=== PATIENT | female | born 1980 | race Caucasian/White ===

== ENCOUNTER 2019-04-28 18:30 | Observation (INO) | payer MEDICAID, OTHER ==
[~2019-04-28] VITALS: Ht 157.5 cm; Wt 60.8 kg
[2019-04-28] MEDS ORDERED: DEXT 5%/LR + PITOCIN 20UNITS/L 1,000 ML IV SCH ×2 (19:01→20:28)
[2019-04-28] MEDS ORDERED: BUTORPHANOL TARTRATE 2 MG/ML VIAL IV PRN (19:15)
[2019-04-28] MEDS ORDERED: NALOXONE HCL 0.4 MG/ML 1ML VIAL IM PRN (19:15)
[2019-04-28] MEDS ORDERED: CARBOPROST TROMETHAMINE 250 MCG/ML AMPUL IM PRN (19:15)
[2019-04-28] MEDS ORDERED: MISOPROSTOL 100MCG TABLET VG SCH (19:15)
[2019-04-28] MEDS ORDERED: METHYLERGONOVINE MALEATE 0.2 MG/ML IM PRN (19:15)
[2019-04-28] MEDS ORDERED: LIDOCAINE HCL 1% 20ML VIAL (Pyxis) INJ INFIL SCH (19:15)
[2019-04-28] MEDS ORDERED: MAGNESIUM 4 G PREMIX 100 ML IV NR (19:15)
[2019-04-28] MEDS ORDERED: BETAMETHASONE ACET/BETAMET 30 MG/5 ML VIAL IM ONE (19:15)
[2019-04-28 19:29] LABS: BASOPHILS % 0.3 % (0.0-2.0); EOSINOPHILS % 0.4 % (0.0-5.0); HEMOGLOBIN. 9.5 g/dL (12.0-16.0); LYMPHOCYTES % 17.8 % (20.0-50.0); MEAN CORPUSCULAR HEMOGLOBIN 31.9 pg (28.0-32.0); MEAN PLATELET VOLUME 9.1 fl (7.4-10.4); NEUTROPHILS % 75.5 % (40.0-76.0); PLATELET 202 x1000/uL (130-400); RED BLOOD CELL COUNT 2.97 mill/uL (4.2-5.4); RED CELL DISTRIBUTION WIDTH 13.7 % (11.6-14.6)
[2019-04-28 19:36] LABS: CHLORIDE 114 mEq/L (98-107)
[2019-04-28 19:37] LABS: PARTIAL THROMBOPLASTIN TIME 24.1 sec (23.4-31.0); PROTHROMBIN TIME 10.1 sec (9.6-11.0)
[2019-04-28 20:06] LABS: HEPATITIS B SURFACE ANTIGEN NEGATIVE
[2019-04-28] MEDS ORDERED: IBUPROFEN 400MG TABLET PO PRN (20:30)
[2019-04-28] MEDS ORDERED: IBUPROFEN 800MG TABLET PO PRN (20:30)
[2019-04-28] MEDS ORDERED: RHO(D) IMMUNE GLOBULIN 300 MCG/SYR IM PRN (20:30)
[2019-04-28] MEDS: MAGNESIUM 20 G PREMIX (L & D) 500 ML IV SCH (21:50)
[2019-04-28 22:44] LABS: CLARITY URINE CLEAR (CLEAR); COLOR URINE YELLOW (YELLOW); KETONES URINE NEGATIVE (NEGATIVE); LEUKOCYTE ESTERASE URINE NEGATIVE (NEGATIVE); NITRITE URINE NEGATIVE (NEGATIVE); OCCULT BLOOD URINE TRACE (NEGATIVE); PROTEIN URINE NEGATIVE (NEGATIVE); UROBILINOGEN URINE 0.2 E.U./dL (0.2-1.0)
[2019-04-28 22:54] LABS: CANNABINOID URINE SCREEN NEGATIVE (NEGATIVE)
[2019-04-28 22:56] LABS: *AMPHETAMINES SCREEN URINE NEGATIVE (NEGATIVE); *BARBITURATES SCREEN URINE NEGATIVE (NEGATIVE); *BENZODIAZEPINES SCREEN URINE NEGATIVE (NEGATIVE); *COCAINE SCREEN URINE NEGATIVE (NEGATIVE); METHADONE URINE SCREEN NEGATIVE (NEGATIVE); OPIATES URINE SCREEN NEGATIVE (NEGATIVE); PHENCYCLIDINE URINE SCREEN NEGATIVE (NEGATIVE)
[2019-04-29] MEDS ORDERED: ONDANSETRON HCL 4MG/2ML INJ IV SCH (02:00)
[2019-04-29] MEDS: LACTATED RINGERS 1,000 ML IV SCH ×2 (02:11→16:53)
[2019-04-29 04:39] LABS: BASOPHILS % 0.2 % (0.0-2.0); HEMATOCRIT. 27.3 % (36.0-48.0); HEMOGLOBIN. 9.6 g/dL (12.0-16.0); LYMPHOCYTES % 8.6 % (20.0-50.0); MEAN CORPUSCULAR HEMOGLOBIN 32.2 pg (28.0-32.0); MEAN CORPUSCULAR VOLUME 91.6 fL (81.0-99.0); MEAN PLATELET VOLUME 9.4 fl (7.4-10.4); MONOCYTES % 1.8 % (2.0-8.0); NEUTROPHILS % 89.4 % (40.0-76.0); PLATELET 207 x1000/uL (130-400); RED BLOOD CELL COUNT 2.99 mill/uL (4.2-5.4); RED CELL DISTRIBUTION WIDTH 13.7 % (11.6-14.6)
[2019-04-29] MEDS: MAGNESIUM 20 G PREMIX (L & D) 500 ML IV SCH ×2 (07:07→15:15)
[2019-04-29] MEDS: FERROUS SULFATE 325MG TABLET PO SCH (09:00)
[2019-04-29] MEDS: DOCUSATE SODIUM 100MG CAPSULE PO SCH ×3 (12:35→21:49)
[2019-04-29] MEDS: PRENATAL VIT/FE FUMARATE/FA TABLET PO SCH (12:36)
[2019-04-29] MEDS ORDERED: BETAMETHASONE ACET/BETAMET 30 MG/5 ML VIAL IM NR (23:00)
[2019-04-30] MEDS ORDERED: PHENYLEPHRINE HCL 10 MG/ML 1ML (IV VIAL) IV ONE (01:49)
[2019-04-30] MEDS ORDERED: EPHEDRINE SULFATE 50MG/ML VIAL ONE (01:49)
[2019-04-30] MEDS: MAGNESIUM 20 G PREMIX (L & D) 500 ML IV SCH ×3 (05:19→21:53)
[2019-04-30] MEDS: LACTATED RINGERS 1,000 ML IV SCH ×3 (06:05→20:36)
[2019-04-30] MEDS: DOCUSATE SODIUM 100MG CAPSULE PO SCH ×2 (12:59→20:38)
[2019-04-30] MEDS: PRENATAL VIT/FE FUMARATE/FA TABLET PO SCH (12:59)
[2019-04-30] MEDS: FERROUS SULFATE 325MG TABLET PO SCH ×2 (13:00→20:36)
[2019-04-30 21:53] VITALS: BP 117/54
[2019-05-01] MEDS ORDERED: ACETAMINOPHEN 500MG TABLET PO SCH (01:15)
[2019-05-01 07:41] LABS: HEMATOCRIT. 23.1 % (36.0-48.0); MEAN CORPUSCULAR HEMOGLOBIN 31.8 pg (28.0-32.0); MEAN CORPUSCULAR VOLUME 91.8 fL (81.0-99.0); MEAN PLATELET VOLUME 8.1 fl (7.4-10.4); PLATELET 211 x1000/uL (130-400); RED BLOOD CELL COUNT 2.52 mill/uL (4.2-5.4); RED CELL DISTRIBUTION WIDTH 14.2 % (11.6-14.6)
[2019-05-01] MEDS: LACTATED RINGERS 1,000 ML IV SCH ×2 (07:44→16:36)
[2019-05-01] MEDS: FERROUS SULFATE 325MG TABLET PO SCH ×2 (10:43→22:21)
[2019-05-01] MEDS: PRENATAL VIT/FE FUMARATE/FA TABLET PO SCH (10:43)
[2019-05-01] MEDS: DOCUSATE SODIUM 100MG CAPSULE PO SCH ×3 (10:43→22:22)
[2019-05-01 13:03] LABS: PLATELET ESTIMATE NORMAL
[2019-05-02] MEDS: LACTATED RINGERS 1,000 ML IV SCH (02:00)
[2019-05-02] MEDS: PRENATAL VIT/FE FUMARATE/FA TABLET PO SCH (09:07)
[2019-05-02] MEDS: DOCUSATE SODIUM 100MG CAPSULE PO SCH (09:07)
[2019-05-02] MEDS: FERROUS SULFATE 325MG TABLET PO SCH (09:07)
[2019-05-02] MEDS ORDERED: DOCU-138 MT (09:38)
[2019-05-02] MEDS ORDERED: FERR325T6 MT (09:38)
[2019-05-02] MEDS ORDERED: PREN1TAB23 MT (09:38)
== END 2019-05-02 09:45 | disposition home or self-care (01) ==
LOC: 8 EST LDRP 18:30 → 8 EST A/PP 05-01 11:00
PROVIDERS: ADMIT Obstetrics & Gynecology; ATTEND Obstetrics & Gynecology
DX: O46.92 Antepartum hemorrhage, unspecified, second trimester (principal); O26.892 Other specified pregnancy related conditions, second trimester; R10.30 Lower abdominal pain, unspecified; Z3A.26 26 weeks gestation of pregnancy
CPT/HCPCS: 36415; 76805; 76815; 76818; 80053; 80305; 81003; 82962; 83735; 84550; 85025; 85384; 85610; 85730; 86592; 86703; 86762; 86850; 86900; 86901; 86920; 87340; 96365; 96366; 96372; 96375; C1893; G0378; J0595; J0702; J2370; J2405; J3475; J3490; J7120

== ENCOUNTER 2019-05-23 07:54 | Inpatient (IN) | payer MEDICAID ==
[~2019-05-23] VITALS: Ht 154.9 cm; Wt 62.6 kg
[2019-05-23] MEDS: LACTATED RINGERS 1,000 ML IV SCH ×4 (02:00→14:30)
[~2019-05-23 07:54] MED LIST: DOCU-138 MT; FERR325T6 MT; PREN1TAB23 MT
[2019-05-23 09:11] LABS: BASOPHILS % 0.3 % (0.0-2.0); EOSINOPHILS % 0.8 % (0.0-5.0); HEMATOCRIT. 30.2 % (36.0-48.0); HEMOGLOBIN. 10.5 g/dL (12.0-16.0); LYMPHOCYTES % 19.2 % (20.0-50.0); MEAN CORPUSCULAR HEMOGLOBIN 31.3 pg (28.0-32.0); MEAN CORPUSCULAR VOLUME 90.6 fL (81.0-99.0); MEAN PLATELET VOLUME 8.9 fl (7.4-10.4); NEUTROPHILS % 72.7 % (40.0-76.0); PLATELET 278 x1000/uL (130-400); RED BLOOD CELL COUNT 3.34 mill/uL (4.2-5.4); RED CELL DISTRIBUTION WIDTH 14.8 % (11.6-14.6)
[2019-05-23 09:20] LABS: INR 0.9; PARTIAL THROMBOPLASTIN TIME 23.8 sec (23.4-31.0); PROTHROMBIN TIME 9.6 sec (9.6-11.0)
[2019-05-23] MEDS ORDERED: MAGNESIUM 20 G PREMIX (L & D) 500 ML IV SCH (16:18)
[2019-05-23] MEDS ORDERED: BETAMETHASONE ACET/BETAMET 30 MG/5 ML VIAL IM SCH (16:30)
[2019-05-23] MEDS ORDERED: CARBOPROST TROMETHAMINE 250 MCG/ML AMPUL IM PRN (16:30)
[2019-05-23] MEDS ORDERED: METHYLERGONOVINE MALEATE 0.2 MG/ML IM PRN (16:30)
[2019-05-23] MEDS: MAGNESIUM SULFATE 20 GM in DEXT 5% WATER 500 ML IV SCH (19:01)
[2019-05-23 19:46] LABS: CLARITY URINE CLEAR (CLEAR); COLOR URINE YELLOW (YELLOW); KETONES URINE TRACE (NEGATIVE); LEUKOCYTE ESTERASE URINE NEGATIVE (NEGATIVE); NITRITE URINE NEGATIVE (NEGATIVE); OCCULT BLOOD URINE NEGATIVE (NEGATIVE); PROTEIN URINE NEGATIVE (NEGATIVE); SPECIFIC GRAVITY URINE 1.017 (1.005-1.030); UROBILINOGEN URINE 0.2 E.U./dL (0.2-1.0)
[2019-05-23 20:10] LABS: *AMPHETAMINES SCREEN URINE NEGATIVE (NEGATIVE); *COCAINE SCREEN URINE NEGATIVE (NEGATIVE); CANNABINOID URINE SCREEN NEGATIVE (NEGATIVE); METHADONE URINE SCREEN NEGATIVE (NEGATIVE); OPIATES URINE SCREEN NEGATIVE (NEGATIVE)
[2019-05-23 20:11] LABS: *BARBITURATES SCREEN URINE NEGATIVE (NEGATIVE); *BENZODIAZEPINES SCREEN URINE NEGATIVE (NEGATIVE); PHENCYCLIDINE URINE SCREEN NEGATIVE (NEGATIVE)
[2019-05-23 21:29] LABS: HEPATITIS B SURFACE ANTIGEN NEGATIVE
[2019-05-24] MEDS: LACTATED RINGERS 1,000 ML IV SCH (04:30)
[2019-05-24] MEDS: MAGNESIUM SULFATE 20 GM in DEXT 5% WATER 500 ML IV SCH (06:07)
[2019-05-24 07:45] LABS: BASOPHILS % 0.1 % (0.0-2.0); HEMATOCRIT. 27.9 % (36.0-48.0); HEMOGLOBIN. 9.7 g/dL (12.0-16.0); LYMPHOCYTES % 9.1 % (20.0-50.0); MEAN CORPUSCULAR HEMOGLOBIN 31.4 pg (28.0-32.0); MEAN CORPUSCULAR VOLUME 90.5 fL (81.0-99.0); MEAN PLATELET VOLUME 8.5 fl (7.4-10.4); MONOCYTES % 3.2 % (2.0-8.0); NEUTROPHILS % 87.6 % (40.0-76.0); PLATELET 297 x1000/uL (130-400); RED BLOOD CELL COUNT 3.08 mill/uL (4.2-5.4); RED CELL DISTRIBUTION WIDTH 14.9 % (11.6-14.6)
[2019-05-24] MEDS ORDERED: ONDANSETRON HCL 4MG/2ML INJ IV SCH (09:00)
== END 2019-05-24 14:55 | disposition home or self-care (01) | DRG 566 ==
LOC: 8 EST LDRP 07:54 → OBSVTOIN 16:30
PROVIDERS: ADMIT Obstetrics & Gynecology; ATTEND Obstetrics & Gynecology
DX: O44.13 Complete placenta previa with hemorrhage, third trimester (principal); O24.410 Gestational diabetes mellitus in pregnancy, diet controlled; Z3A.29 29 weeks gestation of pregnancy
CPT/HCPCS: 36415; 59412; 76805; 76818; 80305; 81003; 83735; 86703; 86762; 86850; 86900; 87340; 96360; 96361; 96372; 99281; G0378; J0702; J2405; J3475; J7060; J7120; A4315

== ENCOUNTER 2019-05-30 02:33 | Observation (INO) | payer MEDICAID, OTHER ==
[~2019-05-30] VITALS: Ht 157.5 cm; Wt 62.6 kg
[2019-05-30 04:02] LABS: CLARITY URINE CLEAR (CLEAR); COLOR URINE YELLOW (YELLOW); KETONES URINE NEGATIVE (NEGATIVE); LEUKOCYTE ESTERASE URINE 1+ (NEGATIVE); NITRITE URINE NEGATIVE (NEGATIVE); OCCULT BLOOD URINE NEGATIVE (NEGATIVE); PROTEIN URINE NEGATIVE (NEGATIVE); SPECIFIC GRAVITY URINE 1.009 (1.005-1.030); UROBILINOGEN URINE 0.2 E.U./dL (0.2-1.0)
[2019-05-30] MEDS ORDERED: LACTATED RINGERS 1,000 ML IV SCH (04:30)
[2019-05-30] MEDS ORDERED: ACETAMINOPHEN 500MG TABLET PO SCH (04:30)
== END 2019-05-30 05:30 | disposition home or self-care (01) ==
LOC: 8 EST LDRP 02:33
PROVIDERS: ADMIT Obstetrics & Gynecology; ATTEND Obstetrics & Gynecology
DX: O26.893 Other specified pregnancy related conditions, third trimester (principal); R10.30 Lower abdominal pain, unspecified; R30.0 Dysuria; Z3A.30 30 weeks gestation of pregnancy
CPT/HCPCS: 81003; 99281; G0378

== ENCOUNTER 2019-07-07 01:18 | Inpatient (IN) | payer MEDICAID ==
[~2019-07-07] VITALS: Ht 157.5 cm; Wt 66.2 kg
[2019-07-07] MEDS: LACTATED RINGERS 1,000 ML IV SCH ×3 (01:16→07:00)
[2019-07-07] MEDS ORDERED: DEXT 5%/LR + PITOCIN 20UNITS/L 1,000 ML IV SCH ×2 (02:17→06:21)
[2019-07-07] MEDS ORDERED: NALOXONE HCL 0.4 MG/ML 1ML VIAL IM PRN (02:30)
[2019-07-07] MEDS ORDERED: CARBOPROST TROMETHAMINE 250 MCG/ML AMPUL IM PRN (02:30)
[2019-07-07] MEDS ORDERED: METHYLERGONOVINE MALEATE 0.2 MG/ML IM PRN (02:30)
[2019-07-07 02:49] LABS: BASOPHILS % 0.5 % (0.0-2.0); EOSINOPHILS % 0.8 % (0.0-5.0); HEMOGLOBIN. 10.9 g/dL (12.0-16.0); LYMPHOCYTES % 31.7 % (20.0-50.0); MEAN CORPUSCULAR HEMOGLOBIN 29.6 pg (28.0-32.0); MEAN CORPUSCULAR VOLUME 86.9 fL (81.0-99.0); MONOCYTES % 7.5 % (2.0-8.0); NEUTROPHILS % 59.5 % (40.0-76.0); PLATELET 224 x1000/uL (130-400); RED BLOOD CELL COUNT 3.68 mill/uL (4.2-5.4); RED CELL DISTRIBUTION WIDTH 15.8 % (11.6-14.6)
[2019-07-07 02:52] LABS: INR 0.9; PARTIAL THROMBOPLASTIN TIME 24.9 sec (23.4-31.0); PROTHROMBIN TIME 9.1 sec (9.6-11.0)
[2019-07-07 03:22] LABS: HEPATITIS B SURFACE ANTIGEN NEGATIVE
[2019-07-07 04:28] LABS: CLARITY URINE CLEAR (CLEAR); COLOR URINE YELLOW (YELLOW); KETONES URINE NEGATIVE (NEGATIVE); LEUKOCYTE ESTERASE URINE NEGATIVE (NEGATIVE); NITRITE URINE NEGATIVE (NEGATIVE); OCCULT BLOOD URINE NEGATIVE (NEGATIVE); PH URINE 6.5 (4.5-8.0); PROTEIN URINE NEGATIVE (NEGATIVE); SPECIFIC GRAVITY URINE 1.018 (1.005-1.030); UROBILINOGEN URINE 0.2 E.U./dL (0.2-1.0)
[2019-07-07] MEDS ORDERED: FENTANYL CITRATE/PF 50MCG/ML 2ML VIAL ONE (04:30)
[2019-07-07] MEDS ORDERED: OXYTOCIN 10 UNITS/ML 1ML ONE (04:31)
[2019-07-07] MEDS ORDERED: CEFAZOLIN SODIUM 1000MG/VIAL ONE (04:31)
[2019-07-07] MEDS ORDERED: EPHEDRINE SULFATE 50MG/ML VIAL ONE (04:31)
[2019-07-07] MEDS ORDERED: PHENYLEPHRINE HCL 10 MG/ML 1ML (IV VIAL) IV ONE (04:31)
[2019-07-07] MEDS ORDERED: ONDANSETRON HCL 4MG/2ML INJ ONE (04:31)
[2019-07-07] MEDS ORDERED: MORPHINE SULFATE/PF 1MG/ML 10ML AMP ONE (04:31)
[2019-07-07] MEDS ORDERED: GLYCOPYRROLATE 0.2 MG/ML 2ML VIAL ONE (04:32)
[2019-07-07 04:38] LABS: *AMPHETAMINES SCREEN URINE NEGATIVE (NEGATIVE); *BARBITURATES SCREEN URINE NEGATIVE (NEGATIVE); *BENZODIAZEPINES SCREEN URINE NEGATIVE (NEGATIVE); *COCAINE SCREEN URINE NEGATIVE (NEGATIVE)
[2019-07-07 04:39] LABS: CANNABINOID URINE SCREEN NEGATIVE (NEGATIVE); METHADONE URINE SCREEN NEGATIVE (NEGATIVE); OPIATES URINE SCREEN NEGATIVE (NEGATIVE); PHENCYCLIDINE URINE SCREEN NEGATIVE (NEGATIVE)
[2019-07-07] MEDS ORDERED: CITRIC ACID/SODIUM CITRATE SOLN 30ML UDC PO ONE (05:15)
[2019-07-07] MEDS ORDERED: METOCLOPRAMIDE HCL 10MG/2ML VIAL ONE (05:38)
[2019-07-07] MEDS ORDERED: KETOROLAC 60MG/2ML VIAL IM ONE (05:58)
[2019-07-07] MEDS ORDERED: DIPHENHYDRAMINE 50MG/ML VIAL ONE (06:03)
[2019-07-07] MEDS ORDERED: DIPHENHYDRAMINE 50MG/ML VIAL IV PRN (06:30)
[2019-07-07] MEDS ORDERED: HYDROMORPHONE HCL/PF 2MG/ML CPJ IM PRN (06:30)
[2019-07-07] MEDS ORDERED: NALOXONE HCL 0.4 MG/ML 1ML VIAL IV PRN (06:30)
[2019-07-07] MEDS ORDERED: BUTORPHANOL TARTRATE 2 MG/ML VIAL IV PRN (06:30)
[2019-07-07] MEDS ORDERED: RHO(D) IMMUNE GLOBULIN 300 MCG/SYR IM PRN (06:30)
[2019-07-07] MEDS ORDERED: IBUPROFEN 400MG TABLET PO PRN (06:30)
[2019-07-07 09:00] VITALS: BP 106/58
[2019-07-07] MEDS ORDERED: BISACODYL 10MG SUPP PR PRN (09:00)
[2019-07-07 10:00] VITALS: BP 121/59
[2019-07-07] MEDS: KETOROLAC 30MG/ML VIAL IV SCH ×2 (12:26→17:55)
[2019-07-07 14:00] VITALS: BP 93/51
[2019-07-07 20:00] VITALS: BP 110/58
[2019-07-08] VITALS: BP 108/56
[2019-07-08] MEDS: KETOROLAC 30MG/ML VIAL IV SCH (00:01)
[2019-07-08] MEDS: IBUPROFEN 800MG TABLET PO PRN ×3 (06:38→23:45)
[2019-07-08 07:30] VITALS: BP 114/68
[2019-07-08 07:51] LABS: BASOPHILS % 0.3 % (0.0-2.0); EOSINOPHILS % 0.2 % (0.0-5.0); HEMOGLOBIN. 8.5 g/dL (12.0-16.0); LYMPHOCYTES % 15.1 % (20.0-50.0); MEAN CORPUSCULAR HEMOGLOBIN 29.5 pg (28.0-32.0); MEAN CORPUSCULAR VOLUME 87.2 fL (81.0-99.0); MEAN PLATELET VOLUME 9.7 fl (7.4-10.4); MONOCYTES % 4.9 % (2.0-8.0); NEUTROPHILS % 79.5 % (40.0-76.0); PLATELET 176 x1000/uL (130-400); RED BLOOD CELL COUNT 2.87 mill/uL (4.2-5.4); RED CELL DISTRIBUTION WIDTH 16.1 % (11.6-14.6)
[2019-07-08 13:45] VITALS: BP 110/62
[2019-07-08] MEDS: BACITRACIN 15GM TUBE TOP SCH ×2 (15:30→23:30)
[2019-07-08 22:00] VITALS: BP 112/58
[2019-07-09 06:10] VITALS: BP 105/61
[2019-07-09 08:15] VITALS: BP 123/71
[2019-07-09] MEDS: IBUPROFEN 800MG TABLET PO PRN ×2 (08:37→20:01)
[2019-07-09] MEDS: BACITRACIN 15GM TUBE TOP SCH (08:38)
[2019-07-09 17:18] VITALS: BP 118/69
[2019-07-09 20:00] VITALS: BP_SYST 115; BP_SYST 117; BP_DIAS 6; BP_DIAS 61; BP_DIAS 76
[2019-07-10] MEDS: IBUPROFEN 800MG TABLET PO PRN ×2 (02:54→10:54)
[2019-07-10 04:00] VITALS: BP 113/65
[2019-07-10] MEDS ORDERED: IBUP-2030 MT (06:44)
[2019-07-10 07:30] VITALS: BP 116/66
[2019-07-10] MEDS: BACITRACIN 15GM TUBE TOP SCH (10:54)
== END 2019-07-10 11:47 | disposition home or self-care (01) | DRG 540 ==
LOC: OBSVTOIN 01:18 → 8 EST LDRP 01:18 → 8EST 09:00
PROVIDERS: ADMIT Obstetrics & Gynecology; ATTEND Obstetrics & Gynecology
PROC: 10D00Z1 Extraction of Products of Conception, Low, Open Approach (ICD-10-PCS; principal; 2019-07-07)
DX: O44.13 Complete placenta previa with hemorrhage, third trimester (principal); O24.429 Gestational diabetes mellitus in childbirth, unspecified control; D64.9 Anemia, unspecified; O69.81X0 Labor and delivery complicated by cord around neck, without compression, not applicable or unspecified; Z82.3 Family history of stroke; Z3A.36 36 weeks gestation of pregnancy; Z37.0 Single live birth; Z83.3 Family history of diabetes mellitus
CPT/HCPCS: 36415; 80305; 81003; 82962; 85025; 86592; 86703; 86762; 86850; 86900; 86920; 87340; 88307; G0378; J0690; J1200; J1885; J2274; J2370; J2405; J2590; J2765; J3010; J3490; J7120; A4315